=== PATIENT | female | born 1955 | race Caucasian/White ===

== ENCOUNTER → 2016-10-14 | Outpatient (CLI) | payer BC ==
[~2016-10-14] MED LIST: DIAZEPAM 10 MG TABLET. ONE; FENTANYL PF 100 MCG/2 ML VIAL. ONE; IOHEXOL 300 MG/ML 100ML VIAL. ONE; IV NORMAL SALINE 1000ML BAG 1,000 ML ONE; LIDOCAINE 1% Multi-Dose 20 ML VIAL. ONE; MIDAZOLAM HCL/PF 2 MG/2 ML VIAL. ONE
== END | disposition home or self-care (01) ==
LOC: PCVCIMAG 11:26
PROVIDERS: ATTEND Nuclear Medicine Nuclear Cardiology
DX: I87.323 Chronic venous hypertension (idiopathic) with inflammation of bilateral lower extremity (principal); I87.2 Venous insufficiency (chronic) (peripheral); I87.1 Compression of vein; M79.605 Pain in left leg; M79.604 Pain in right leg
CPT/HCPCS: 36012; 37252; 37253; 75822; 75825; 76937; C1751; C1753; C1769; C1894; J2250; J3010; J7030; Q9967